=== PATIENT | female | born 1945 | race Caucasian/White ===

== ENCOUNTER 2017-09-23 10:11 | Outpatient (CLI) | payer MEDICARE, BC ==
[~2017-09-23] VITALS: Ht 167.6 cm; Wt 95.3 kg
[~2017-09-23 10:11] MED LIST: FEXO-124 PO; ONDA4TAB6 PO; SYN0.088T PO; VALS160T2 PO
[2017-09-23] MEDS ORDERED: albuterol 2.5 MG/3 ML nebule NEB ONE (11:05)
== END 2017-09-23 23:59 | disposition home or self-care (01) ==
LOC: RT 10:11
PROVIDERS: ATTEND Internal Medicine
DX: J40 Bronchitis, not specified as acute or chronic (principal); I10 Essential (primary) hypertension; E66.3 Overweight; R06.2 Wheezing; Z79.899 Other long term (current) drug therapy; Z88.5 Allergy status to narcotic agent
CPT/HCPCS: 94010; 94727; 94729